=== PATIENT | female | born 1960 | race Caucasian/White ===

== ENCOUNTER 2024-12-21 12:02 | Emergency (ER) | payer MEDICARE, MEDICAID ==
[~2024-12-21] VITALS: Wt 93.0 kg
[2024-12-21] MEDS ORDERED: CEPHALEXIN500 M1 PO (14:07)
[2024-12-21] MEDS ORDERED: Bactroban Oint22 GM T (14:07)
== END 2024-12-21 14:13 | disposition home or self-care (01) ==
LOC: ED 12:02 → EDBD 12:12 → ED 14:13
DX: S51.012A Laceration without foreign body of left elbow, initial encounter (principal); W18.39XA Other fall on same level, initial encounter; Y93.01 Activity, walking, marching and hiking; Y92.89 Other specified places as the place of occurrence of the external cause; Y99.8 Other external cause status